=== PATIENT | male | born 1970 | race Caucasian/White ===

== ENCOUNTER 2018-10-09 09:19 | Emergency (ER) | payer SELFPAY ==
[2018-10-09] MEDS ORDERED: ONDANSETRON 4 MG/2 ML VIAL ONE (09:49)
[2018-10-09] MEDS ORDERED: MIDAZOLAM HCL 2 MG/2 ML INJ ONE (09:49)
[2018-10-09] MEDS ORDERED: ETOMIDATE 20 MG/10 ML VIAL IV ONE (09:49)
[2018-10-09] MEDS ORDERED: NA CHLORIDE 0.9% 500 ML ONE (10:14)
[2018-10-09] MEDS ORDERED: KETOROLAC 30 MG/ML INJ ONE (10:14)
--- NOTE | 2018-10-09 10:16 | ER ---
Nurse's Notes [facility] Name: Corbin Diez Age: 48 yrs Sex: Male : 1970 Arrival Date: 10/09/2018 Time: 09:19 Bed 14 Private MD: Diagnosis: Recurrent dislocation, right shoulder-reduced Presentation: 10/09 09:31 Presenting complaint: Patient states: SHOULDER IS OUT AGAIN. Transition of care: ls4 patient was not received from another setting of care. Onset of symptoms was October 09, 2018. Risk Assessment: Do you want to hurt yourself or someone else? Patient reports no desire to harm self or others. Initial Sepsis Screen: Does the patient meet any 2 criteria? No. Patient's initial sepsis screen is negative. Does the patient have a suspected source of infection? No. Patient's initial sepsis screen is negative. Care prior to arrival: None. 09:31 Method Of Arrival: Ambulatory ls4 09:31 Acuity: KARLO 4 ls4 Triage Assessment: 09:33 General: Appears unkempt, Behavior is calm, cooperative. Pain: Complains of pain in ls4 anterior aspect of right shoulder and posterior aspect of right shoulder. Musculoskeletal: No deficits noted. Injury Description: CAME OUT OF JOINT WHILE SLEEPING. Historical: - Allergies: 09:32 Iodine; ls4 - PMHx: 09:32 HTN; ls4 - Immunization history:: Adult Immunizations unknown. - Family history:: not pertinent. - Social history:: Smoking status: unknown. - Ebola Screening: : Patient negative for fever greater than or equal to 101.5 degrees Fahrenheit, and additional compatible Ebola Virus Disease symptoms Patient denies exposure to infectious person Patient denies travel to an Ebola-affected area in the 21 days before illness onset No symptoms or risks identified at this time. Screenin:55 Abuse screen: Denies threats or abuse. Denies injuries from another. Nutritional ls4 screening: No deficits noted. Tuberculosis screening: No symptoms or risk factors identified. Fall Risk None identified. Assessment: 09:48 General: Appears uncomfortable. Neuro: No deficits noted. Respiratory: No deficits ls4 noted. GI: No deficits noted. : No deficits noted. Musculoskeletal: Range of motion: limited in right shoulder. 12:00 Reassessment: Patient appears in no apparent distress at this time. Patient and/or ls4 family updated on plan of care and expected duration. Pain level reassessed. Patient is alert, oriented x 3, equal unlabored respirations, skin warm/dry/pink. 12:30 General: Appears in no apparent distress. sleeping, arousable vss. ls4 Vital Signs: 09:55 BP 148 / 90; Pulse 98; Resp 20; Temp 98.6; Pulse Ox 98% on R/A; Pain 10/10; ls4 10:00 BP 145 / 89; Pulse 92; Resp 28; Temp 98.2; Pulse Ox 99% on 2 lpm NC; Pain 0/10; ls4 10:10 BP 145 / 89; Pulse 92; Resp 16; Pulse Ox 99% on R/A; ls4 10:25 BP 124 / 89; Pulse 92; Resp 18; Pulse Ox 99% on R/A; ls4 11:19 BP 132 / 91; Pulse 92; Resp 17; Temp 98.1(O); Pulse Ox 99% on 2 lpm NC; mh5 12:00 BP 138 / 90; Pulse 78; Resp 16; Temp 98(O); Pulse Ox 99% on R/A; Pain 0/10; ls4 ED Course: 09:19 Patient arrived in ED. rg4 09:25 Paul Horner MD is Attending Physician. minerva 09:30 Araceli Sepulveda RN is Primary Nurse. ls4 09:32 Triage completed. ls4 09:33 Arm band placed on left wrist. ls4 09:55 Patient has correct armband on for positive identification. Bed in low position. Call ls4 light in reach. Side rails up X 1. silver solderer on. Pulse ox on. NIBP on. CONSCIOUS SEDATION CONSENT SIGNED AND COMPLETE. 09:55 Assist provider with reduction of right shoulder. ls4 10:15 Zacarias Varela MD is Referral Physician. minerva 10:47 Shoulder Right (2 View) XRAY: post reduction Sent. ls4 11:07 Shoulder immobilizer applied on right shoulder. 5 11:49 see paper chart for consent. procedure assessment and record. ls4 13:01 IV discontinued, intact, bleeding controlled, No redness/swelling at site. Pressure ls4 dressing applied. Administered Medications: 09:55 Drug: NS 0.9% 1000 ml Route: IV; Rate: 1 bolus; Site: left hand; ls4 13:04 Follow up: IV Status: Completed infusion; IV Intake: 1000ml ls4 09:55 Drug: TORadol 30 mg Route: IVP; Site: left hand; ls4 10:25 Follow up: Response: No adverse reaction ls4 09:55 Drug: Zofran 4 mg Route: IVP; Site: left hand; ls4 10:20 Follow up: Response: No adverse reaction ls4 10:04 Drug: Versed 4 mg Route: IVP; Site: left hand; ls4 13:05 Follow up: Response: No adverse reaction ls4 10:05 Drug: Etomidate 10 mg Route: IVP; Site: left hand; ls4 10:35 Follow up: Response: No adverse reaction ls4 10:07 Drug: Etomidate 10 mg Route: IVP; Site: left hand; ls4 10:35 Follow up: Response: No adverse reaction ls4 11:05 Not Given (Duplicate Order): Versed 6 mg IVP once ls4 Intake: 13:04 IV: 1000ml; Total: 1000ml. ls4 Outcome: 10:15 Discharge ordered by . minerva 13:00 Discharged to home ambulatory. ls4 13:00 Condition: good 13:00 Discharge instructions given to patient, family, Instructed on discharge instructions, follow up and referral plans. no drinking with medication, no driving heavy equipment, medication usage, Demonstrated understanding of instructions, follow-up care, medications. 13:05 Patient left the ED. ls4 Signatures: Paul Horner MD MD cha Garcia, Rubi rg4 Sadie Dejesus 5 Araceli Sepulveda RN RN ls4 Corrections: (The following items were deleted from the chart) 11:38 10:07 Versed 4 mg IVP in left hand ls4 ls4
--- NOTE | 2018-10-09 10:16 | EDPHYS ---
Physician Documentation [facility] Name: Corbin Diez Age: 48 yrs Sex: Male : 1970 Arrival Date: 10/09/2018 Time: 09:19 Bed 14 Private MD: ED Physician Paul Horner HPI: 10/09 09:39 This 48 yrs old Male presents to ER via Ambulatory with complaints of minerva Shoulder Injury. 09:39 The patient or guardian complains of decreased range of motion, deformity, pain. right minerva shoulder. Context: The problem was sustained at home. Onset: The symptoms/episode began/occurred just prior to arrival, this morning. Modifying factors: the symptoms are alleviated by remaining still, shoulder immobilizer, The symptoms are aggravated by movement. Associated signs and symptoms: The patient has no apparent associated signs or symptoms. Severity of symptoms: At their worst the symptoms were moderate, in the emergency department the symptoms are actually worse. Treatment prior to arrival includes: no previous treatment. The patient has experienced similar episodes in the past, multiple times. Historical: - Allergies: 09:32 Iodine; ls4 - PMHx: 09:32 HTN; ls4 - Immunization history:: Adult Immunizations unknown. - Family history:: not pertinent. - Social history:: Smoking status: unknown. - Ebola Screening: : Patient negative for fever greater than or equal to 101.5 degrees Fahrenheit, and additional compatible Ebola Virus Disease symptoms Patient denies exposure to infectious person Patient denies travel to an Ebola-affected area in the 21 days before illness onset No symptoms or risks identified at this time. ROS: 09:39 Constitutional: Negative for fever, chills, and weight loss, Eyes: Negative for injury, minerva pain, redness, and discharge, ENT: Negative for injury, pain, and discharge, Neck: Negative for injury, pain, and swelling, Cardiovascular: Negative for chest pain, palpitations, and edema, Respiratory: Negative for shortness of breath, cough, wheezing, and pleuritic chest pain, Abdomen/GI: Negative for abdominal pain, nausea, vomiting, diarrhea, and constipation, Back: Negative for injury and pain, : Negative for injury, bleeding, discharge, and swelling, Skin: Negative for injury, rash, and discoloration, Neuro: Negative for headache, weakness, numbness, tingling, and seizure, Psych: Negative for depression, anxiety, suicide ideation, homicidal ideation, and hallucinations, Allergy/Immunology: Negative for hives, rash, and allergies, Endocrine: Negative for neck swelling, polydipsia, polyuria, polyphagia, and marked weight changes, Hematologic/Lymphatic: Negative for swollen nodes, abnormal bleeding, and unusual bruising. 09:39 MS/extremity: Positive for decreased range of motion, deformity, pain, tenderness, of the right shoulder. Exam: 09:39 Constitutional: This is a well developed, well nourished patient who is awake, alert, minerva and in no acute distress. Head/Face: Normocephalic, atraumatic. Eyes: Pupils equal round and reactive to light, extra-ocular motions intact. Lids and lashes normal. Conjunctiva and sclera are non-icteric and not injected. Cornea within normal limits. Periorbital areas with no swelling, redness, or edema. ENT: Nares patent. No nasal discharge, no septal abnormalities noted. Tympanic membranes are normal and external auditory canals are clear. Oropharynx with no redness, swelling, or masses, exudates, or evidence of obstruction, uvula midline. Mucous membranes moist. Neck: Trachea midline, no thyromegaly or masses palpated, and no cervical lymphadenopathy. Supple, full range of motion without nuchal rigidity, or vertebral point tenderness. No Meningismus. Chest/axilla: Normal chest wall appearance and motion. Nontender with no deformity. No lesions are appreciated. Cardiovascular: Regular rate and rhythm with a normal S1 and S2. No gallops, murmurs, or rubs. Normal PMI, no JVD. No pulse deficits. Respiratory: Lungs have equal breath sounds bilaterally, clear to auscultation and percussion. No rales, rhonchi or wheezes noted. No increased work of breathing, no retractions or nasal flaring. Abdomen/GI: Soft, non-tender, with normal bowel sounds. No distension or tympany. No guarding or rebound. No evidence of tenderness throughout. Back: No spinal tenderness. No costovertebral tenderness. Full range of motion. Male : Normal genitalia with no discharge or lesions. Skin: Warm, dry with normal turgor. Normal color with no rashes, no lesions, and no evidence of cellulitis. Neuro: Awake and alert, GCS 15, oriented to person, place, time, and situation. Cranial nerves II-XII grossly intact. Motor strength 5/5 in all extremities. Sensory grossly intact. Cerebellar exam normal. Normal gait. Psych: Awake, alert, with orientation to person, place and time. Behavior, mood, and affect are within normal limits. 09:39 Musculoskeletal/extremity: ROM: limited active range of motion due to pain, limited passive range of motion due to pain, Circulation is intact in all extremities. Sensation intact. Compartment Syndrome exam of affected extremity: is normal. DVT Exam: no swelling, negative Homans' sign noted on exam, no appreciated bluish discoloration, no erythema, no increased warmth, pain, tenderness. Vital Signs: 09:55 BP 148 / 90; Pulse 98; Resp 20; Temp 98.6; Pulse Ox 98% on R/A; Pain 10/10; ls4 10:00 BP 145 / 89; Pulse 92; Resp 28; Temp 98.2; Pulse Ox 99% on 2 lpm NC; Pain 0/10; ls4 10:10 BP 145 / 89; Pulse 92; Resp 16; Pulse Ox 99% on R/A; ls4 10:25 BP 124 / 89; Pulse 92; Resp 18; Pulse Ox 99% on R/A; ls4 11:19 BP 132 / 91; Pulse 92; Resp 17; Temp 98.1(O); Pulse Ox 99% on 2 lpm NC; mh5 12:00 BP 138 / 90; Pulse 78; Resp 16; Temp 98(O); Pulse Ox 99% on R/A; Pain 0/10; ls4 Procedures: 09:44 Reduction: of the right shoulder, using traction, Immobilized with shoulder minerva immobilizer. Patient tolerated well. Post reduction film - reveals normal alignment. MDM: 09:25 Patient medically screened. [facility] 09:39 Data reviewed: vital signs, nurses notes, radiologic studies. [facility] 10/09 09:39 Order name: Shoulder Right (2 View) XRAY [facility] 10/09 09:42 Order name: Shoulder Right (2 View) XRAY: post reduction [facility] 10/09 11:42 Order name: RAD [facility] 10/09 11:44 Order name: RAD [facility] 10/09 09:39 Order name: Shoulder Immobilizer; Complete Time: 10:47 [facility] 10/09 09:42 Order name: Ice pack; Complete Time: 11:08 minerva Administered Medications: 09:55 Drug: NS 0.9% 1000 ml Route: IV; Rate: 1 bolus; Site: left hand; ls4 13:04 Follow up: IV Status: Completed infusion; IV Intake: 1000ml ls4 09:55 Drug: TORadol 30 mg Route: IVP; Site: left hand; ls4 10:25 Follow up: Response: No adverse reaction ls4 09:55 Drug: Zofran 4 mg Route: IVP; Site: left hand; ls4 10:20 Follow up: Response: No adverse reaction ls4 10:04 Drug: Versed 4 mg Route: IVP; Site: left hand; ls4 13:05 Follow up: Response: No adverse reaction ls4 10:05 Drug: Etomidate 10 mg Route: IVP; Site: left hand; ls4 10:35 Follow up: Response: No adverse reaction ls4 10:07 Drug: Etomidate 10 mg Route: IVP; Site: left hand; ls4 10:35 Follow up: Response: No adverse reaction ls4 11:05 Not Given (Duplicate Order): Versed 6 mg IVP once ls4 Disposition: 10/09/18 10:15 Discharged to Home. Impression: Recurrent dislocation, right shoulder - reduced. - Condition is Stable. - Discharge Instructions: Shoulder Dislocation, Shoulder Dislocation, [id number]. - Prescriptions for Ibuprofen 600 mg Oral Tablet - take 1 tablet by ORAL route every 8 hours As needed take with food; 21 tablet. Tylenol- Codeine #3 300-30 mg Oral Tablet - take 2 tablet by ORAL route every 6 hours As needed; 30 tablet. - Medication Reconciliation Form, Thank You Letter, Antibiotic Education, Prescription Opioid Use form. - Follow up: Private Physician; When: 2 - 3 days; Reason: Recheck today's complaints, Continuance of care, Re-evaluation by your physician. Follow up: Zacarias Varela; When: 2 - 3 days; Reason: Recheck today's complaints, Continuance of care, Re-evaluation by your physician. - Problem is new. - Symptoms have improved. Signatures: Dispatcher [employer] Paul Dallas MD MD cha Stewart, Lisa RN RN ls4 Corrections: (The following items were deleted from the chart) 11:35 10:15 10/09/2018 10:15 Discharged to Home. Impression: Recurrent dislocation, right ls4 shoulder - reduced. Condition is Stable. Discharge Instructions: Shoulder Dislocation, Shoulder Dislocation, [id number]. Prescriptions for Ibuprofen 600 mg Oral Tablet - take 1 tablet by ORAL route every 8 hours As needed take with food; 21 tablet, Tylenol-Codeine #3 300-30 mg Oral Tablet - take 2 tablet by ORAL route every 6 hours As needed; 30 tablet. and Forms are Medication Reconciliation Form, Thank You Letter, Antibiotic Education, Prescription Opioid Use. Follow up: Private Physician; When: 2 - 3 days; Reason: Recheck today's complaints, Continuance of care, Re-evaluation by your physician. Follow up: Zacarias Varela; When: 2 - 3 days; Reason: Recheck today's complaints, Continuance of care, Re-evaluation by your physician. Problem is new. Symptoms have improved. minerva 13:05 11:35 10/09/2018 10:15 Discharged to Home. Impression: Recurrent dislocation, right ls4 shoulder - reduced. Condition is Stable. Discharge Instructions: Shoulder Dislocation, Shoulder Dislocation, [id number]. Prescriptions for Ibuprofen 600 mg Oral Tablet - take 1 tablet by ORAL route every 8 hours As needed take with food; 21 tablet, Tylenol-Codeine #3 300-30 mg Oral Tablet - take 2 tablet by ORAL route every 6 hours As needed; 30 tablet. and Forms are Medication Reconciliation Form, Thank You Letter, Antibiotic Education, Prescription Opioid Use. Follow up: Private Physician; When: 2 - 3 days; Reason: Recheck today's complaints, Continuance of care, Re-evaluation by your physician. Follow up: Zacarias Varela; When: 2 - 3 days; Reason: Recheck today's complaints, Continuance of care, Re-evaluation by your physician. Problem is new. Symptoms have improved. ls4
--- NOTE | 2018-10-09 11:41 | RAD REPORT ---
EXAM DESCRIPTION: RAD - Shoulder 1 View - 10/09/2018 10:25 am CLINICAL HISTORY: Right shoulder pain FINDINGS: Anterior dislocation involves the right humeral head. No fracture seen
--- NOTE | 2018-10-09 11:43 | RAD REPORT ---
EXAM DESCRIPTION: RAD - Shoulder 1 View - 10/09/2018 10:37 am CLINICAL HISTORY: Right shoulder dislocation FINDINGS: The previously described dislocation appears reduced.
== END 2018-10-09 13:05 | disposition home or self-care (01) ==
LOC: ER 09:19
PROC: 0RSJXZZ Reposition Right Shoulder Joint, External Approach (ICD-10-PCS; principal; 2018-10-09)
DX: S43.004A Unspecified dislocation of right shoulder joint, initial encounter (principal); X58.XXXA Exposure to other specified factors, initial encounter; Z91.09 Other allergy status, other than to drugs and biological substances
CPT/HCPCS: 73020; J2250; J2405

== ENCOUNTER 2019-01-01 07:46 | Emergency (ER) | payer SELFPAY ==
[2019-01-01 08:21] LABS: Absolute Lymphocytes (CBC) 2.4 K/uL (0.7-4.9); Absolute Monocytes 0.4 K/uL (0.1-1.3); Absolute Neutrophil 5.1 K/uL (1.8-8.0); Basophils % 1.1 % (0-1.3); Eosinophils % 4.3 % (0-4.4); Hematocrit 41.5 % (39.6-49.0); Lymphocytes % 28.9 % (15.3-44.8); MPV 8.3 fL (7.6-11.3); Monocytes % 4.9 % (3.3-12.3); RBC Red Blood Cell Count 4.53 M/uL (4.33-5.43)
[2019-01-01 08:43] LABS: ALT/SGPT 27 U/L (12-78); AST/SGOT 36 U/L (15-37); Albumin 3.7 g/dL (3.4-5.0); Alkaline Phosphatase 65 U/L (45-117); BUN Blood Urea Nitrogen 6 mg/dL (7-18); Bicarbonate 20 mmol/L (21-32); Bilirubin Direct < 0.1 mg/dL (0-0.2); Bilirubin Total 0.6 mg/dL (0.2-1.0); Glucose Level 137 mg/dL (74-106); Lipase 550 U/L (73-393); Potassium 4.1 mmol/L (3.5-5.1); Protein, Total 6.7 g/dL (6.4-8.2); Sodium Level 141 mmol/L (136-145)
--- NOTE | 2019-01-01 08:55 | RAD REPORT ---
EXAM DESCRIPTION: CT - Head C Spine Mpr Wo Con - 01/01/2019 8:20 am CLINICAL HISTORY: seizure Head and neck injury status post fall. Head and neck pain COMPARISON: None. TECHNIQUE: Computed axial tomography of the head and cervical spine was obtained. Sagittal and coronal reconstruction was performed. All CT scans are performed using dose optimization technique as appropriate and may include automated exposure control or mA/KV adjustment according to patient size. FINDINGS: Right scalp laceration. An intracranial bleed is not seen. The ventricles are normal in caliber. An extra-axial fluid collect ion is not noted.Fluid is present within the maxillary, ethmoid and sphenoid sinuses A cervical fracture is not visualized. No dislocation is noted. IMPRESSION: No acute intracranial abnormality is seen. Fluid within the sinuses may indicate sinusitis A cervical fracture is not visualized. If the patient continues to have symptoms to suggest intracra nial /spinal cord pathology then MRI would be recommended
[2019-01-01] MEDS ORDERED: NA CHLORIDE 0.9% 1,000 ML ONE (09:15)
[2019-01-01] MEDS ORDERED: TETANUS & DIPHTHERIA TOX,ADULT 0.5 ML VIAL ONE (09:15)
[2019-01-01] MEDS ORDERED: NA CHLORIDE 0.9% 100 ML IV ONE (09:16)
[2019-01-01] MEDS ORDERED: AMPICILLIN/SULBACT 1.5GM VIAL ONE (09:16)
[2019-01-01 10:46] LABS: Urine Blood NEGATIVE (NEG); Urine Glucose NEGATIVE (NEG); Urine Protein 1+ (NEG); Urine pH 6.5 (5.0-7.0)
[2019-01-01 10:50] LABS: Barbiturates NEGATIVE (NEGATIVE); Benzodiazepines NEGATIVE (NEGATIVE); Cocaine NEGATIVE (NEGATIVE); METHAMPHETAM POSITIVE (NEGATIVE); Methadone NEGATIVE (NEGATIVE); Opiates NEGATIVE (NEGATIVE); Phencyclidine NEGATIVE (NEGATIVE); THC Cannibis POSITIVE (NEGATIVE)
[2019-01-01] MEDS ORDERED: KETOROLAC 30 MG/ML INJ ONE (13:07)
[2019-01-01] MEDS ORDERED: LIDOCAINE 1% W/EPI 1:100,000 MDV 50 ML VIAL ONE (15:10)
--- NOTE | 2019-01-01 15:28 | EDPHYS ---
Physician Documentation [facility] Name: Corbin Diez Age: 48 yrs Sex: Male : 1970 Arrival Date: 01/01/2019 Time: 07:52 Bed 6 Private MD: ED Physician Stanley Hernandez HPI: 01/01 08:24 This 48 yrs old Male presents to ER via Wheelchair with complaints of Seizure.snw 08:24 The patient presents after having a single isolated seizure, that lasted 6 second(s). snw Character of seizure(s): Loss of consciousness: the patient did not lose consciousness, Motor activity: blank stare, Incontinence: none, Apnea: the patient did not experience apnea, Circulation: the patient did not experience evidence of pulse disturbance, Eye movements: are unknown. Seizure onset: just prior to arrival. Context: the seizure(s) was witnessed, by a significant other, occurred at a restaurant, occurred while the patient was sitting, Contributing factors: increased stress. Seizure Hx: the patient has no previous seizure history. Associated injury: Other: laceration. Current symptoms: Currently, the patient is not experiencing any symptoms. The patient has not experienced similar symptoms in the past. The patient has not recently seen a physician. Historical: - Allergies: 07:57 IV contrast; ss - Home Meds: 07:57 metoprolol tartrate 50 mg Oral tab 1 tab 2 times per day [Active]; ss - PMHx: 07:57 HTN; ss - PSHx: 07:57 Cholecystectomy; exploratory abd sx; ss - Immunization history:: Adult Immunizations up to date. - Social history:: Smoking status: Patient uses tobacco products, smokes one-half pack cigarettes per day, Patient uses alcohol, only on a social basis. Patient/guardian denies using street drugs. - Ebola Screening: : Patient denies exposure to infectious person Patient denies travel to an Ebola-affected area in the 21 days before illness onset. ROS: 08:22 Constitutional: Negative for fever, chills, and weight loss, Eyes: Negative for injury, snw pain, redness, and discharge, ENT: Negative for injury, pain, and discharge, Neck: Negative for injury, pain, and swelling, Cardiovascular: Negative for chest pain, palpitations, and edema, Respiratory: Negative for shortness of breath, cough, wheezing, and pleuritic chest pain, Abdomen/GI: Negative for abdominal pain, nausea, vomiting, diarrhea, and constipation, Back: Negative for injury and pain, : Negative for injury, bleeding, discharge, and swelling, MS/Extremity: Negative for injury and deformity, Skin: Negative for injury, rash, and discoloration. 08:22 Neuro: Positive for seizure activity, laceration of right parietal area and right ear. Exam: 08:22 Constitutional: This is a well developed, well nourished patient who is awake, alert, snw and in no acute distress. Eyes: Pupils equal round and reactive to light, extra-ocular motions intact. Lids and lashes normal. Conjunctiva and sclera are non-icteric and not injected. Cornea within normal limits. Periorbital areas with no swelling, redness, or edema. Neck: Trachea midline, no thyromegaly or masses palpated, and no cervical lymphadenopathy. Supple, full range of motion without nuchal rigidity, or vertebral point tenderness. No Meningismus. Chest/axilla: Normal chest wall appearance and motion. Nontender with no deformity. No lesions are appreciated. Cardiovascular: Regular rate and rhythm with a normal S1 and S2. No gallops, murmurs, or rubs. Normal PMI, no JVD. No pulse deficits. Respiratory: Lungs have equal breath sounds bilaterally, clear to auscultation and percussion. No rales, rhonchi or wheezes noted. No increased work of breathing, no retractions or nasal flaring. Abdomen/GI: Soft, non-tender, with normal bowel sounds. No distension or tympany. No guarding or rebound. No evidence of tenderness throughout. Back: No spinal tenderness. No costovertebral tenderness. Full range of motion. Skin: Warm, dry with normal turgor. Normal color with no rashes, no lesions, and no evidence of cellulitis. MS/ Extremity: Pulses equal, no cyanosis. Neurovascular intact. Full, normal range of motion. Neuro: Awake and alert, GCS 15, oriented to person, place, time, and situation. Cranial nerves II-XII grossly intact. Motor strength 5/5 in all extremities. Sensory grossly intact. Cerebellar exam normal. Normal gait. 08:22 Head/face: Noted is a laceration(s), of the pt with one linear 2cm laceration to right parietal area, another complex laceration over the right ear, helix degloved with 2cm of intact appearing cartilage visible from gaping laceration. Vital Signs: 07:57 Pulse 96; Resp 16; Temp 98.2(TE); Pulse Ox 97% on R/A; Weight 68.04 kg; Height 5 ft. 7 ss in. (170.18 cm); Pain 8/10; 08:00 BP 112 / 72; aa5 08:50 BP 98 / 55; Pulse 80; Resp 16 S; Pulse Ox 98% on R/A; aa5 09:15 BP 109 / 66; Pulse 79; Resp 16 S; Pulse Ox 97% on R/A; aa5 09:45 BP 113 / 77; Pulse 76; Resp 18 S; Pulse Ox 100% on R/A; aa5 10:00 BP 120 / 76; Pulse 78; Resp 18 S; Pulse Ox 100% on R/A; aa5 10:30 BP 102 / 56; Pulse 76; Resp 18 S; Pulse Ox 98% on R/A; aa5 11:30 BP 97 / 60; Pulse 57; Resp 18 S; Pulse Ox 99% on R/A; aa5 12:00 BP 107 / 69; Pulse 65; Resp 16 S; Pulse Ox 98% on R/A; aa5 13:07 BP 107 / 86; Pulse 70; Resp 14; Pulse Ox 100% ; bp 15:35 BP 138 / 81; Pulse 51; Resp 18; Temp 98.1(O); Pulse Ox 99% on R/A; kj1 07:57 Body Mass Index 23.49 (68.04 kg, 170.18 cm) ss Rebuck Coma Score: 08:00 Eye Response: spontaneous(4). Verbal Response: oriented(5). Motor Response: obeys aa5 commands(6). Total: 15. MDM: 07:57 Patient medically screened. snw 09:50 Physician consultation: Sarah Patterson MD was called at 09:50, was contacted at snw 09:50, regarding consult, Kindly agrees to come and eval and tx complex ear laceration. 10:11 Data reviewed: vital signs, nurses notes. Data interpreted: Pulse oximetry: on room air snw is 98 %. Interpretation: normal. Counseling: I had a detailed discussion with the patient and/or guardian regarding: the historical points, exam findings, and any diagnostic results supporting the discharge/admit diagnosis, lab results, radiology results. 13:48 Awaiting: ENT. snw 15:19 Physician consultation: in the emergency department to see patient at 15:00. snw 01/01 07:59 Order name: UDS; Complete Time: 11:20 snw 01/01 07:59 Order name: Basic Metabolic Panel; Complete Time: 08:56 snw 01/01 07:59 Order name: CBC with Diff; Complete Time: 08:30 snw 01/01 07:59 Order name: Hepatic Function; Complete Time: 08:56 snw 01/01 07:59 Order name: Lipase; Complete Time: 08:56 snw 01/01 07:59 Order name: CT Head C Spine; Complete Time: 08:56 snw 01/01 07:59 Order name: IV Saline Lock; Complete Time: 08:00 snw 01/01 10:38 Order name: Urine Dipstick--Ancillary (enter results); Complete Time: 11:20 01/01 07:59 Order name: Labs collected and sent; Complete Time: 08:01 snw 01/01 11:20 Order name: NPO; Complete Time: 11:23 snw Administered Medications: 09:12 Drug: NS 0.9% 1000 ml Route: IV; Rate: 1 bolus; Site: right forearm; bp 10:15 Follow up: IV Status: Completed infusion aa5 09:13 Drug: Unasyn 3 grams Route: IVPB; Infused Over: 30 mins; Site: right forearm; bp 09:45 Follow up: Response: No adverse reaction; IV Status: Completed infusion aa5 09:13 Drug: Tetanus-Diphtheria Toxoid Adult 0.5 ml {Retail Department Reset: [employer]. Exp: bp 11/04/2020. Lot #: [id number]. } Route: IM; Site: right deltoid; 09:45 Follow up: Response: No adverse reaction aa5 12:53 Follow up: Response: No adverse reaction bp 12:56 Drug: Ketorolac 15 mg Route: IVP; Site: right forearm; bp 13:10 Follow up: Response: No adverse reaction aa5 15:15 Drug: Lidocaine-Epinephrine -1%: (1:100,000) 1 vials {Note: administered by Dr. Patterson aa5 during laceration repair .} Volume: 20 ml; Route: Infiltration; Disposition: 01/01/19 15:27 Discharged to Home. Impression: Syncope and collapse, Other stimulant use, unspecified, Unspecified injury of head, Laceration without foreign body of right ear, Contusion of scalp, Laceration without foreign body of scalp. - Condition is Stable. - Discharge Instructions: Head Injury, Adult, Laceration Care, Adult, Facial Laceration, Seizure, Adult, Syncope, Stimulant Use Disorder-Methamphetamines. - Prescriptions for Keflex 500 mg Oral Capsule - take 1 capsule by ORAL route every 8 hours for 10 days; 30 capsule. Mobic 7.5 mg Oral Tablet - take 1 tablet by ORAL route once daily take with food; 20 tablet. - Medication Reconciliation Form, Thank You Letter, Antibiotic Education, Prescription Opioid Use form. - Follow up: Emergency Department; When: As needed; Reason: Worsening of condition. Follow up: Private Physician; When: As needed; Reason: Re-evaluation by your physician. Follow up: Sarah Patterson MD; When: 5 - 6 days; Reason: Recheck today's complaints, Continuance of care, Staple/Suture removal. - Problem is new. - Symptoms have improved. Addendum: 01/03/2019 08:03 Co-signature as Attending Physician, Stanley Hernandez MD Available for consultation at p s1 all times. . Signatures: Dispatcher [employer] [facility] Joi Jane, REGIONAL CLINICAL RESEARCH ASSOCIATE-C REGIONAL CLINICAL RESEARCH ASSOCIATE-Csnw Irasema Hebert RN RN aa5 Yoselin Trevino RN RN ss Peltier, Brian, RN RN bp Singer, Phillip, MD MD ps1 Corrections: (The following items were deleted from the chart) 01/01 11:23 08:00 Creatinine for Radiology+C.LAB.BRZ ordered. [facility] EDWI 15:44 15:27 01/01/2019 15:27 Discharged to Home. Impression: Syncope and collapse; Other aa5 stimulant use, unspecified; Unspecified injury of head; Laceration without foreign body of right ear; Contusion of scalp; Laceration without foreign body of scalp. Condition is Stable. Forms are Medication Reconciliation Form, Thank You Letter, Antibiotic Education, Prescription Opioid Use. Follow up: Emergency Department; When: As needed; Reason: Worsening of condition. Follow up: Private Physician; When: As needed; Reason: Re-evaluation by your physician. Follow up: Sarah Patterson; When: 5 - 6 days; Reason: Recheck today's complaints, Continuance of care, Staple/Suture removal. Problem is new. Symptoms have improved. snw
--- NOTE | 2019-01-01 15:28 | ER ---
Nurse's Notes [facility] Name: Corbin Diez Age: 48 yrs Sex: Male : 1970 Arrival Date: 01/01/2019 Time: 07:52 Bed 6 Private MD: Diagnosis: Syncope and collapse;Other stimulant use, unspecified;Unspecified injury of head;Laceration without foreign body of right ear;Contusion of scalp;Laceration without foreign body of scalp Presentation: 01/01 07:55 Presenting complaint: spouse reports that they were sitting down eating just prior to ss arrival, when patient suddenly had a seizure lasting "a few seconds." Laceration to top of R ear and R parietal area noted. Pt is A\\T\\O x 3 on arrival. Transition of care: patient was not received from another setting of care. Onset of symptoms was January 01, 2019. Risk Assessment: Do you want to hurt yourself or someone else? Patient reports no desire to harm self or others. Initial Sepsis Screen: Does the patient meet any 2 criteria? No. Patient's initial sepsis screen is negative. Does the patient have a suspected source of infection? No. Patient's initial sepsis screen is negative. Care prior to arrival: None. 07:55 Method Of Arrival: Wheelchair 07:55 Acuity: KARLO 2 ss Historical: - Allergies: 07:57 IV contrast; ss - Home Meds: 07:57 metoprolol tartrate 50 mg Oral tab 1 tab 2 times per day [Active]; ss - PMHx: 07:57 HTN; ss - PSHx: 07:57 Cholecystectomy; exploratory abd sx; ss - Immunization history:: Adult Immunizations up to date. - Social history:: Smoking status: Patient uses tobacco products, smokes one-half pack cigarettes per day, Patient uses alcohol, only on a social basis. Patient/guardian denies using street drugs. - Ebola Screening: : Patient denies exposure to infectious person Patient denies travel to an Ebola-affected area in the 21 days before illness onset. Screenin:10 Nutritional screening: No deficits noted. Tuberculosis screening: No symptoms or risk aa5 factors identified. 08:10 Abuse screen: Denies threats or abuse. aa5 08:14 Fall Risk Fall in past 12 months (25 points). Secondary diagnosis (15 points) Seizure aa5 today . IV access (20 points). Total Pablo Fall Scale indicates High Risk Score (45 or more points). Fall prevention measures have been instituted. Side Rails Up X 2. Assessment: 08:00 General: Appears comfortable, Behavior is calm, cooperative. Pain: Complains of pain in aa5 right eat and right parietal area Pain does not radiate. Pain currently is 8 out of 10 on a pain scale. Neuro: Level of Consciousness is awake, alert, obeys commands, Oriented to person, place, time, situation, Appropriate for age Pastrycook'S Assistant are equal bilaterally Moves all extremities. Speech is normal, Facial symmetry appears normal, Pupils are PERRLA. Cardiovascular: Heart tones S1 S2 present Rhythm is regular. Respiratory: Airway is patent Respiratory effort is even, unlabored, Respiratory pattern is regular, symmetrical, Breath sounds are clear bilaterally. GI: Abdomen is non-distended, Bowel sounds present X 4 quads. Abd is soft and non tender X 4 quads. : No signs and/or symptoms were reported regarding the genitourinary system. Derm: Skin is pink, warm \\T\\ dry. Avulsion noted to right ear approximately 1.5 in long with cartilage exposed. Laceration noted to right parietal area, approximately 1 in long. Wounds cleaned with saline, gauze, and Kerlix applied. Musculoskeletal: Range of motion: intact in all extremities. 09:00 Reassessment: Pt resting in bed with eyes closed respirations even and unlabored, skin aa5 is pink/warm/dry. Pt easy to awaken to verbal stimuli. Pt rates pain 6/10 on a pain scale. . 09:40 Reassessment: Pt resting in bed with eyes closed, respirations even and unlabored, skin aa5 is pink/warm/dry . 10:30 Reassessment: Pt voided 400cc of urine, UDS sent to lab. Pt resting in bed with eyes aa5 closed, respirations even and unlabored. Awaiting for Dr. Patterson (ENT) to come and evaluate pt, pt notified of wait time. . 11:49 Reassessment: awaiting consultation from Dr. Patterson. ss 12:00 Reassessment: Patient is alert, oriented x 3, equal unlabored respirations, skin aa5 warm/dry/pink. Pt voided x 1. Pt reminded of NPO status due to possibility of need to go to OR. Awaiting Dr. Patterson. . 12:00 Reassessment: Called Dr. Patterson to obtain ETA, no answer. Left VM. ss 13:00 Reassessment: Patient is alert, oriented x 3, equal unlabored respirations, skin aa5 warm/dry/pink. 13:00 Pain: Pain currently is 3 out of 10 on a pain scale. aa5 13:06 Reassessment: ENT C/S STILL PENDING. bp 13:44 Reassessment: Called Luz Elena supervisor housecleaner to attempt to get ahold of Dr. Patterson. ss 14:30 Reassessment: Patient is alert, oriented x 3, equal unlabored respirations, skin aa5 warm/dry/pink. Patient states feeling better. 15:10 Reassessment: Dr. Patterson at bedside . aa5 15:40 Reassessment: Patient is alert, oriented x 3, equal unlabored respirations, skin aa5 warm/dry/pink. Vital Signs: 07:57 Pulse 96; Resp 16; Temp 98.2(TE); Pulse Ox 97% on R/A; Weight 68.04 kg; Height 5 ft. 7 ss in. (170.18 cm); Pain 8/10; 08:00 BP 112 / 72; aa5 08:50 BP 98 / 55; Pulse 80; Resp 16 S; Pulse Ox 98% on R/A; aa5 09:15 BP 109 / 66; Pulse 79; Resp 16 S; Pulse Ox 97% on R/A; aa5 09:45 BP 113 / 77; Pulse 76; Resp 18 S; Pulse Ox 100% on R/A; aa5 10:00 BP 120 / 76; Pulse 78; Resp 18 S; Pulse Ox 100% on R/A; aa5 10:30 BP 102 / 56; Pulse 76; Resp 18 S; Pulse Ox 98% on R/A; aa5 11:30 BP 97 / 60; Pulse 57; Resp 18 S; Pulse Ox 99% on R/A; aa5 12:00 BP 107 / 69; Pulse 65; Resp 16 S; Pulse Ox 98% on R/A; aa5 13:07 BP 107 / 86; Pulse 70; Resp 14; Pulse Ox 100% ; bp 15:35 BP 138 / 81; Pulse 51; Resp 18; Temp 98.1(O); Pulse Ox 99% on R/A; kj1 07:57 Body Mass Index 23.49 (68.04 kg, 170.18 cm) ss Nadeen Coma Score: 08:00 Eye Response: spontaneous(4). Verbal Response: oriented(5). Motor Response: obeys aa5 commands(6). Total: 15. ED Course: 07:52 Patient arrived in ED. aa5 07:52 Irasema Hebert, LEV is Primary Nurse. aa5 07:56 Triage completed. ss 07:57 Joi Jane FNP-C is PHCP. snw 07:57 Stanley Hernandez MD is Attending Physician. snw 07:57 Arm band placed on right wrist. ss 08:00 Seizure precautions initiated. aa5 08:14 Inserted saline lock: 20 gauge in right forearm, using aseptic technique. kj1 08:14 Initial lab(s) drawn, by me, sent to lab. kj1 08:14 EKG done, by ED staff. kj1 08:[address] mw3 08:17 CT completed. Patient tolerated procedure well. Patient moved back from CT. mw3 08:20 CT Head C Spine In Process Unspecified. EDMS 12:11 No provider procedures requiring assistance completed. aa5 15:24 Sarah Patterson MD is Referral Physician. snw 15:26 Assist provider with laceration repair on right ear using sutures. Set up tray. aa5 Performed by Sarah Patterson MD Dressed with Neosporin, 8 horace applied to laceration to right parietal area by Dr. Patterson, dressed with Neosporin. Patient tolerated well. 15:40 IV discontinued, intact, bleeding controlled, No redness/swelling at site. Pressure aa5 dressing applied. Administered Medications: 09:12 Drug: NS 0.9% 1000 ml Route: IV; Rate: 1 bolus; Site: right forearm; bp 10:15 Follow up: IV Status: Completed infusion aa5 09:13 Drug: Unasyn 3 grams Route: IVPB; Infused Over: 30 mins; Site: right forearm; bp 09:45 Follow up: Response: No adverse reaction; IV Status: Completed infusion aa5 09:13 Drug: Tetanus-Diphtheria Toxoid Adult 0.5 ml {Uniform Room Attendant: [employer]. Exp: bp 11/04/2020. Lot #: [id number]. } Route: IM; Site: right deltoid; 09:45 Follow up: Response: No adverse reaction aa5 12:53 Follow up: Response: No adverse reaction bp 12:56 Drug: Ketorolac 15 mg Route: IVP; Site: right forearm; bp 13:10 Follow up: Response: No adverse reaction aa5 15:15 Drug: Lidocaine-Epinephrine -1%: (1:100,000) 1 vials {Note: administered by Dr. Leonardo hathaway during laceration repair .} Volume: 20 ml; Route: Infiltration; Outcome: 15:27 Discharge ordered by . snw 15:40 Discharged to home ambulatory. aa5 15:40 Condition: stable 15:40 Discharge instructions given to patient, Instructed on discharge instructions, follow up and referral plans. medication usage, Demonstrated understanding of instructions, follow-up care, medications, Prescriptions given X 2. 15:44 Patient left the ED. aa5 Signatures: Dispatcher [employer] [facility] Joi Jane FNP-C BLISS PRESS OPERATOR-Irasema Spangler, RN RN aa5 Yoselin Trevino RN RN Bill Davenport RN RN bp Willis, Michelle mw3 Cindy Elizabeth kj1 Corrections: (The following items were deleted from the chart) 08:16 08:10 Abuse screen: Denies threats or abuse. aa5 aa5 08:16 08:10 Fall Risk Fall in past 12 months (25 points). Secondary diagnosis (15 points) aa5 Seizure today . IV access (20 points). aa5 08:16 08:14 Fall Risk Fall in past 12 months (25 points). Secondary diagnosis (15 points) aa5 Seizure today . IV access (20 points). aa5
--- NOTE | 2019-01-02 17:06 | OP ---
Date of Procedure: 01/01/2019 Surgeon: Sarah Patterson MD Preoperative Diagnoses: Right scalp laceration of 7.5 cm, right ear laceration complex of 5 cm. Postoperative Diagnoses: Right scalp laceration of 7.5 cm, right ear laceration complex of 5 cm. Procedures: Simple repair of scalp laceration and complex repair of ear laceration. Indications For Procedure: The patient was at home and may have had a fall or seizure-like activity sustaining the above noted injuries. He was evaluated in the emergency room and cleared from neurologic and head injury standpoint. Due to the complexity of the ear wound, ENT consultation was requested for repair. The patient was seen and treated in the emergency room setting. Description Of Procedure: After verbal consent from the patient, the right ear and right scalp were injected with 1% lidocaine with epi. A total of 6 mL was used. The patient's ear and scalp were then cleaned with chlorhexidine due to iodine allergy. The wound of the scalp was noted to be deep and completely through the soft tissue scalp tissue with visible bone. After careful consideration, decision was made for closure with horace. A total of 8 horace was applied to the scalp laceration. Attention was then turned to the right ear. The laceration extended along the preauricular crease from the midpoint of the pinna superiorly around the top of the helix and across the root of the helix. The laceration was deep and the upper portion of the cartilage of the helix and antihelix were fractured and pulled away from the scalp. Vicryl sutures were used to re-attach the top portion of the auricular cartilage to the scalp in order to reposition the ear against the head. The skin was closed in a running fashion with 5-0 fast-absorbing gut. At the root of the helix, there was a 2nd small laceration, which was repaired separately with running fast-absorbing gut. After closure of the ear wound, a small amount of auricular hematoma was noted along the edge of the upper portion of the minoo and along the antihelical rim. However, this is relatively small and I do not feel that drainage of this hematoma was indicated. The patient's ear was then cleaned with a damp gauze and triple antibiotic was applied to both the scalp and ear lacerations. Disposition: The patient will be discharged home by the emergency room with a recommendation for Keflex or other similar antibiotic coverage. He will follow up in my clinic in 1 to 2 weeks for removal of horace and evaluation of healing. DARRELL/SHOSHANA Voice ID: [id number] Report ID: [id number] MTDD
--- NOTE | 2019-01-03 05:58 | EKG ---
Test Date: 2019-01-01 Test Time: 08:10:51 Termite Renewal Inspector: SAMSON MEASUREMENT RESULTS: Intervals: Rate: 88 CT: 180 QRSD: 96 QT: 362 QTc: 438 [place]: P: 53 CT: 180 QRS: 45 T: 65 INTERPRETIVE STATEMENTS: Normal sinus rhythm Normal ECG Compared to ECG 03/06/2003 09:53:00 Sinus arrhythmia no longer present Electronically Signed On 01-03-19 05:57:49 CDT by Panchito Vega
== END 2019-01-01 15:44 | disposition home or self-care (01) ==
LOC: ER 07:46
DX: R55 Syncope and collapse (principal); F15.90 Other stimulant use, unspecified, uncomplicated; S00.03XA Contusion of scalp, initial encounter; S01.01XA Laceration without foreign body of scalp, initial encounter; S01.311A Laceration without foreign body of right ear, initial encounter; W19.XXXA Unspecified fall, initial encounter; Y92.511 Restaurant or cafe as the place of occurrence of the external cause; I10 Essential (primary) hypertension; F17.210 Nicotine dependence, cigarettes, uncomplicated; Z23 Encounter for immunization
CPT/HCPCS: 36415; 70450; 72125; 80048; 80076; 80307; 81003; 83690; 85025; 90714; 93005; 96361; 96365; 96375; 99285; J0295; J7030

== ENCOUNTER 2019-08-09 15:02 | Emergency (ER) | payer SELFPAY ==
[2019-08-09] MEDS ORDERED: KETOROLAC 30 MG/ML INJ ONE (16:08)
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
[2019-08-09 17:35] VITALS: BP 117/78; TEMP 97.3; O2SAT 98
--- NOTE | 2019-08-09 18:10 | RAD REPORT ---
EXAM DESCRIPTION: RAD - Shoulder Left 2 View - 08/09/2019 4:26 pm CLINICAL HISTORY: Left shoulder pain following trauma COMPARISON: None. TECHNIQUE: Internal and external rotation views of the left shoulder were obtained. FINDINGS: There is no fracture or dislocation. AC joint is normal in appearance. No acute or suspici ous findings. IMPRESSION: Negative two-view left shoulder examination.
== END 2019-08-09 16:59 | disposition home or self-care (01) ==
LOC: ER 15:02
DX: M25.512 Pain in left shoulder (principal); W20.8XXA Other cause of strike by thrown, projected or falling object, initial encounter; Y93.89 Activity, other specified; Y92.9 Unspecified place or not applicable; F17.210 Nicotine dependence, cigarettes, uncomplicated
CPT/HCPCS: 96372; 99283

== ENCOUNTER 2021-05-19 14:50 | Emergency (ER) | payer SELFPAY ==
[2021-05-19 18:10] LABS: Urine Blood Negative (Negative); Urine Glucose Negative (Negative); Urine Protein Negative (Negative); Urine pH 6.5 (5.0-7.0)
[2021-05-19 18:16] LABS: Protime INR 1.02
[2021-05-19 18:18] LABS: Absolute Lymphocytes (CBC) 2.6 K/uL (0.7-4.9); Basophils % 0.7 % (0-1.3); Hematocrit 45.8 % (39.6-49.0); Lymphocytes % 30.3 % (15.3-44.8); MPV 7.7 fL (7.6-11.3); RBC Red Blood Cell Count 4.95 M/uL (4.33-5.43)
--- NOTE | 2021-05-19 18:24 | RAD REPORT ---
EXAM DESCRIPTION: Taylor Single View05/19/2021 6:17 pm CLINICAL HISTORY: Chest pain COMPARISON: none FINDINGS: The lungs appear clear of acute infiltrate. The heart is normal size IMPRESSION: No acute abnormalities displayed
[2021-05-19 18:26] LABS: ALT/SGPT 53 U/L (12-78); AST/SGOT 24 U/L (15-37); Alkaline Phosphatase 74 U/L (45-117); BUN Blood Urea Nitrogen 14 mg/dL (7-18); Bicarbonate 25 mmol/L (21-32); Bilirubin Direct 0.1 mg/dL (0-0.2); Bilirubin Total 0.6 mg/dL (0.2-1.0); Glucose Level 92 mg/dL (74-106); Magnesium 2.2 mg/dL (1.8-2.4); NT PRO-BNP 31 pg/mL (<125); Potassium 4.1 mmol/L (3.5-5.1); Protein, Total 7.3 g/dL (6.4-8.2); Sodium Level 135 mmol/L (136-145); Troponin (Emerg Dept Use Only) < 0.02 ng/mL (0.0-0.045)
[2021-05-19 18:35] LABS: Barbiturates NEGATIVE (NEGATIVE); Benzodiazepines NEGATIVE (NEGATIVE); Cocaine NEGATIVE (NEGATIVE); METHAMPHETAM POSITIVE (NEGATIVE); Methadone NEGATIVE (NEGATIVE); Opiates NEGATIVE (NEGATIVE); Phencyclidine NEGATIVE (NEGATIVE); THC Cannibis POSITIVE (NEGATIVE)
--- NOTE | 2021-05-19 21:14 | ER ---
Nurse's Notes [facility] Name: Corbin Diez Age: 50 yrs Sex: Male : 1970 Arrival Date: 05/19/2021 Time: 14:54 Bed 25 Private MD: Diagnosis: Chest pain, unspecified;Other stimulant abuse-Methamphetamine;Cannabis abuse Presentation: 05/19 15:02 Method Of Arrival: Ambulatory 15:17 Chief complaint: Patient states: L sided chest pain that began this morning. ss Coronavirus screen: Client denies travel out of the [place] in the last 14 days. Ebola Screen: Patient denies exposure to infectious person. Patient denies travel to an Ebola-affected area in the 21 days before illness onset. Initial Sepsis Screen: Does the patient meet any 2 criteria? No. Patient's initial sepsis screen is negative. Does the patient have a suspected source of infection? No. Patient's initial sepsis screen is negative. Risk Assessment: Do you want to hurt yourself or someone else? Patient reports no desire to harm self or others. Onset of symptoms was May 19, 2021. 15:17 Acuity: KARLO 3 ss Historical: - Allergies: 15:02 IV contrast; ss - PMHx: 15:02 HTN; ss - Immunization history:: Client reports receiving the 2nd dose of the Covid vaccine. - Social history:: Smoking status: Patient reports the use of cigarette tobacco products, smokes one-half pack cigarettes per day. Screenin:52 Abuse screen: Denies threats or abuse. Denies injuries from another. Nutritional ld1 screening: No deficits noted. Tuberculosis screening: No symptoms or risk factors identified. Fall Risk None identified. Assessment: 17:52 General: Appears in no apparent distress. comfortable, Behavior is calm, cooperative, ld1 appropriate for age. Pain: Complains of pain in left clavicle, anterior aspect of left upper chest and left breast Pain does not radiate. Pain currently is 8 out of 10 on a pain scale. Quality of pain is described as throbbing, Pain began 4 hours ago. Is continuous. Neuro: Level of Consciousness is awake, alert, obeys commands, Oriented to person, place, time, situation, Appropriate for age. Cardiovascular: Capillary refill < 3 seconds Patient's skin is warm and dry. Rhythm is sinus bradycardia. Respiratory: Respiratory: Airway is patent Respiratory effort is even, unlabored, Respiratory pattern is regular, symmetrical. GI: GI: Abdomen is flat, non-distended. : No signs and/or symptoms were reported regarding the genitourinary system. EENT: No signs and/or symptoms were reported regarding the EENT system. Derm: No signs and/or symptoms reported regarding the dermatologic system. Musculoskeletal: No signs and/or symptoms reported regarding the musculoskeletal system. 19:30 Reassessment: Patient appears in no apparent distress at this time. No changes from ld1 previously documented assessment. Patient and/or family updated on plan of care and expected duration. Pain level reassessed. 20:47 Reassessment: Patient appears in no apparent distress at this time. Patient is alert, ld1 oriented x 3, equal unlabored respirations, skin warm/dry/pink. Vital Signs: 15:17 BP 145 / 97; Pulse 69; Resp 18; Temp 98.2(TE); Pulse Ox 100% on R/A; Weight 68.04 kg; ss Height 5 ft. 7 in. (170.18 cm); Pain 6/10; 17:52 BP 167 / 112; Pulse 51; Resp 18; Pulse Ox 99% on R/A; ld1 18:47 BP 156 / 89; Pulse 60; Resp 20; Pulse Ox 99% ; Pain 8/10; ch5 20:47 BP 105 / 61; Pulse 59; Resp 18; Pulse Ox 100% on R/A; ld1 15:17 Body Mass Index 23.49 (68.04 kg, 170.18 cm) ED Course: 14:54 Patient arrived in ED. mr 15:02 Arm band placed on right wrist. ss 15:18 Triage completed. ss 17:28 Donavon Vallejo NP is PHCP. pm1 17:28 Hudson Pinto MD is Attending Physician. pm1 17:52 Patient has correct armband on for positive identification. Bed in low position. Call ld1 light in reach. Side rails up X2. gambling monitor on. Pulse ox on. NIBP on. Door closed. Noise minimized. Warm blanket given. 17:52 No provider procedures requiring assistance completed. Inserted saline lock: 20 gauge ld1 in right forearm, using aseptic technique. Blood collected. Patient maintains SpO2 saturation greater than 95% on room air. 18:18 XRAY Chest (1 view) In Process Unspecified. EDMS 18:47 Cesar Saenz, RN is Primary Nurse. ch5 Administered Medications: No medications were administered Outcome: 21:28 AMA ld1 21:28 Condition: stable 21:28 Patient left the ED. ld1 Signatures: Dispatcher [employer] EDAK Bess Hudson mr Yoselin Trevino RN RN ss Donavon Vallejo, WILLIAM TUBE CUTTER OPERATOR pm1 Kay Kern RN RN ld1 Cesar Saenz, RN RN ch5
--- NOTE | 2021-05-19 21:14 | EDPHYS ---
Physician Documentation [facility] Name: Corbin Diez Age: 50 yrs Sex: Male : 1970 Arrival Date: 05/19/2021 Time: 14:54 Bed 25 Private MD: ED Physician Hudson Pinto HPI: 05/19 17:38 This 50 yrs old Male presents to ER via Ambulatory with complaints of Chest pm1 Pain. 17:38 The patient or guardian reports chest pain that is located primarily in the anterior pm1 aspect of left upper chest. Onset: today, at 12:00. The pain does not radiate. Associated signs and symptoms: The patient has no apparent associated signs or symptoms, Pertinent negatives: abdominal pain, cough, nausea, shortness of breath, vomiting. The chest pain is described as aching. Duration: The patient or guardian reports a single episode, that is still ongoing. Modifying factors: The symptoms are alleviated by nothing. the symptoms are aggravated by nothing. Severity of pain: in the emergency department the pain is unchanged. The patient has not experienced similar symptoms in the past. The patient has not recently seen a physician. Historical: - Allergies: 15:02 IV contrast; ss - PMHx: 15:02 HTN; ss - Immunization history:: Client reports receiving the 2nd dose of the Covid vaccine. - Social history:: Smoking status: Patient reports the use of cigarette tobacco products, smokes one-half pack cigarettes per day. ROS: 17:38 Constitutional: Negative for fever, chills, and weight loss. pm1 17:38 Respiratory: Negative for shortness of breath, cough, wheezing, and pleuritic chest pain, Abdomen/GI: Negative for abdominal pain, nausea, vomiting, diarrhea, and constipation, MS/Extremity: Negative for injury and deformity, Skin: Negative for injury, rash, and discoloration, Neuro: Negative for headache, weakness, numbness, tingling, and seizure. 17:38 Cardiovascular: Positive for chest pain, Negative for edema, palpitations. 17:38 All other systems are negative. Exam: 17:38 Constitutional: This is a well developed, well nourished patient who is awake, alert, pm1 and in no acute distress. Head/Face: Normocephalic, atraumatic. 17:38 Skin: Warm, dry with normal turgor. Normal color with no rashes, no lesions, and no evidence of cellulitis. MS/ Extremity: Pulses equal, no cyanosis. Neurovascular intact. Full, normal range of motion. 17:38 Cardiovascular: Exam negative for acute changes, Rate: normal, Rhythm: regular, Pulses: no pulse deficits are appreciated, Heart sounds: normal, normal S1and S2, Edema: is not appreciated. 17:38 Respiratory: Exam negative for acute changes, respiratory distress, shortness of breath, Breath sounds: are clear throughout. 17:38 Neuro: Exam negative for acute changes, Orientation: is normal, Mentation: is normal, Motor: is normal, moves all fours. Vital Signs: 15:17 BP 145 / 97; Pulse 69; Resp 18; Temp 98.2(TE); Pulse Ox 100% on R/A; Weight 68.04 kg; ss Height 5 ft. 7 in. (170.18 cm); Pain 6/10; 17:52 BP 167 / 112; Pulse 51; Resp 18; Pulse Ox 99% on R/A; ld1 18:47 BP 156 / 89; Pulse 60; Resp 20; Pulse Ox 99% ; Pain 8/10; ch5 20:47 BP 105 / 61; Pulse 59; Resp 18; Pulse Ox 100% on R/A; ld1 15:17 Body Mass Index 23.49 (68.04 kg, 170.18 cm) ss MDM: 17:41 Patient medically screened. pm1 21:10 Data reviewed: vital signs. Data interpreted: Pulse oximetry: on room air is 100 %. pm1 Interpretation: normal. 05/19 17:37 Order name: Basic Metabolic Panel; Complete Time: 19:17 pm1 05/19 17:37 Order name: CBC with Diff; Complete Time: 19:17 pm1 05/19 17:37 Order name: LFT's; Complete Time: 19:17 pm05/19 17:37 Order name: Magnesium; Complete Time: 19:17 pm05/19 17:37 Order name: NT PRO-BNP; Complete Time: 19:17 pm1 05/19 17:37 Order name: PT-INR; Complete Time: 19:17 pm1 05/19 15:37 Order name: EKG; Complete Time: 15:37 05/19 17:37 Order name: Troponin (emerg Dept Use Only); Complete Time: 19:17 pm1 05/19 17:37 Order name: XRAY Chest (1 view); Complete Time: 19:17 pm1 05/19 17:37 Order name: UDS; Complete Time: 19:17 pm1 05/19 18:10 Order name: Urine Dipstick-Ancillary EDMS 05/19 18:10 Order name: Urine Dipstick-Ancillary; Complete Time: 18:14 EDMS 05/19 20:10 Order name: Troponin (emerg Dept Use Only) pm1 05/19 20:11 Order name: Troponin (Emerg Dept Use Only); Complete Time: 21:10 EDMS 05/19 15:37 Order name: EKG - Nurse/Tech; Complete Time: 15:37 05/19 17:37 Order name: Cardiac monitoring; Complete Time: 17:52 pm1 05/19 17:37 Order name: IV Saline Lock; Complete Time: 17:55 pm1 05/19 17:37 Order name: Labs collected and sent; Complete Time: 17:55 pm1 05/19 17:37 Order name: O2 Per Protocol; Complete Time: 17:52 pm1 05/19 17:37 Order name: O2 Sat Monitoring; Complete Time: 17:52 pm1 05/19 17:37 Order name: Urine Dipstick-Ancillary (obtain specimen); Complete Time: 18:06 pm1 Administered Medications: No medications were administered Disposition: 05/20 20:36 Co-signature as Attending Physician, Hudson Pinto MD. ma2 Disposition Summary: 05/19/21 21:14 Left Against Medical Advice Location: Home pm1 Problem: new pm1 Symptoms: are unchanged pm1 Condition: Stable pm1 Diagnosis - Chest pain, unspecified pm1 - Other stimulant abuse - Methamphetamine pm1 - Cannabis abuse pm1 Followup: pm1 - With: Emergency Department - When: As needed - Reason: Worsening of condition Followup: pm1 - With: Private Physician - When: Upon discharge from the Emergency Department - Reason: Recheck today's complaints, Continuance of care, Re-evaluation by your physician Discharge Instructions: - Discharge Summary Sheet pm1 - Nonspecific Chest Pain, Adult pm1 - Cannabis Use Disorder pm1 - Methamphetamines Use Disorder pm1 Signatures: Dispatcher [employer] Yoselin Marie RN RN ss Donavon Vallejo, WAITSTAFF CAPTAIN WAITSTAFF CAPTAIN pm1 Hudson Pinto, MD ma2
[2021-05-19 21:35] VITALS: TEMP 98.2
[2021-05-19 21:39] VITALS: BP 105/61; O2SAT 100
== END 2021-05-19 21:28 | disposition left against medical advice (07) ==
LOC: ER 14:50
DX: F15.10 Other stimulant abuse, uncomplicated (principal); F12.10 Cannabis abuse, uncomplicated; I10 Essential (primary) hypertension; F17.210 Nicotine dependence, cigarettes, uncomplicated; Z91.041 Radiographic dye allergy status
CPT/HCPCS: 36415; 71045; 80048; 80076; 80307; 81003; 83735; 83880; 84484; 85025; 85610; 93005; 99285

== ENCOUNTER 2021-06-26 11:24 | Emergency (ER) | payer SELFPAY ==
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
[2021-06-26 14:29] VITALS: TEMP 98.7
[2021-06-26 14:30] VITALS: BP 135/97; O2SAT 97
== END 2021-06-26 14:23 | disposition home or self-care (01) ==
LOC: ER 11:24
DX: S12.600S Unspecified displaced fracture of seventh cervical vertebra, sequela (principal); I10 Essential (primary) hypertension; F17.210 Nicotine dependence, cigarettes, uncomplicated
CPT/HCPCS: 70450; 72125; 99283

== ENCOUNTER 2023-08-24 01:38 | Emergency (ER) | payer SELFPAY ==
--- OUTSIDE RECORDS SUMMARY | 2023-08-24 01:41 | XMS REPORT | Continuity of Care Document ---
:[address] [facility] t Address [address] [place] [address] [place] [address] Care Team Providers Name Role Phone PCP, PATIENT DOES NOT HAVE A Primary Care Physician UnavailLIZZIE Mario Attending Clinician Unavailable Lizzie Rivera MD Attending Clinician ADRIANNA Attending Clinician Unavailable Doctor Unassigned, [place] Attending Clinician Unavailable Radiology Attending Clinician Unavailable RADIOLOGY Attending Clinician Unavailable NELIDA MCKEON Attending Clinician Unavailable Nelida Cunningham Attending Clinician Belén Loredo LMSW Attending Clinician Zacarias Francois MD Attending Clinician Rosendo LAFLEUR Attending Clinician Unavailable Rosendo Benton Attending Clinician ADRIANNA Admitting Clinician Unavailable NELIDA MCKEON Admitting Clinician Unavailable Payers Payer Name Policy Type Policy Number Effective Date Expiration Date Braden mcginnis [facility] [id number] 2022 HEALTHCARE 00:00:00 Problems Condition Condition Condition Status Onset Resolution Last Treating Co mments Source Name Details Category Date Date Treatment Clinician Date No known No known Disease Unive rs active active ity of problems problems [facility] Allergies, Adverse Reactions, Alerts Allergy Allergy Status Severity Reaction(s) Onset Inactive Treating Comm ents Source Name Type Date Date Clinician NO KNOWN Drug Active Univers ALLERGIE Class ity of S [facility] Social History Social Habit Start Date Stop Date Quantity Comments Source Exposure to 2022-05-20 2022-05-30 Not sure University SARS-CoV-2 (event) 00:00:00 13:36:00 [facility] Cigarettes smoked 2022-05-30 2022-05-30 Univers ity of current (pack per 00:00:00 00:00:00 [facility] ) - Reported Branch Cigarette 2022-05-30 2022-05-30 University of pack-years 00:00:00 00:00:00 [facility] Tobacco use and 2022-05-30 2022-05-30 Former smokeless Uni versity of exposure 00:00:00 00:00:00 tobacco user [facility] Alcohol intake 2022-05-30 2022-05-30 1.43 /d University of 00:00:00 00:00:00 [facility] History of tobacco 2004-06-04 Chews Tobacco Uni versity of use 00:00:00 [facility] Sex Assigned At [birth year] Universit y of 00:00:00 00:00:00 [facility] Smoking Status Start Date Stop Date Source Smokes tobacco daily 2022-05-30 00:00:00 [facility] ity [facility] Medications Ordered Filled Start Stop Current Ordering Indication Dosage Frequency Signature Comments Components Source Medication Medication Date Date Medication? Clinician (SIG) Name Name metoprolol Yes Take by [facility] ers succinate 05-30 mouth ity of 50 mg CSpX 13:52: daily. [place] 31 [facility] [place] gabapentin Yes [id number] 300mg Take 1 Univers 300 mg 03-27 capsule by ity of capsule 00:00: mouth 3 [place] 00 (three) Medical times Branch daily. Vital Signs Vital Name Observation Time Observation Value Comments Source Systolic blood 2022-05-30 18:54:00 139 mm[Hg] Univer sity of pressure [facility] Diastolic blood 2022-05-30 18:54:00 85 mm[Hg] Unive rsity of pressure [facility] Heart rate 2022-05-30 18:54:00 71 /min Universi ty [facility] Body temperature 2022-05-30 18:54:00 36 Angelique Univ ersity [facility] Respiratory rate 2022-05-30 18:54:00 18 /min [facility] Body height 2022-05-30 18:54:00 170.2 cm [facility] Body weight 2022-05-30 18:54:00 72.122 kg [facility] BMI 2022-05-30 18:54:00 24.90 kg/m2 [facility] Oxygen saturation in 2022-05-30 18:54:00 96 /min [facility] Arterial blood by [facility] Pulse oximetry Branch Procedures This patient has no known procedures. Encounters Start End Encounter Admission Attending Care Care Encounter Source Date/Time Date/Time Type Type Clinicians Facility Department ID 2023-04-01 2023-04-01 Outpatient [facility] [id number] 13:09:14 13:09:14 [id number] [place] 2022-12-02 2022-12-02 Outpatient [facility] [id number] Kimo 17:18:46 17:18:46 [id number] [place] 2022-06-05 2022-06-05 Outpatient R JAIMIE, [facility] [id number] Univers 10:20:00 10:20:00 LIZZIE pope [facility] 2022-05-30 2022-05-30 [facility] [id number] Univers 14:00:00 16:07:26 NASREENYOMAIRA demarcus pope [facility] 2022-05-30 2022-05-30 Office Jaimie, [facility] [id number] Univers 14:00:00 14:20:00 Visit Lizzie HUIZAR [id number] demarcus [facility] [id number] Kimberly SHEPPARD [id number] Tn dical [facility] 059 Branch [facility] 2022-05-30 2022-05-30 [facility] [id number] Univers 14:00:00 14:00:00 LIZZIE pope [facility] 2022-04-21 2022-04-21 Outpatient AMBREEN_FAR ULISES [facility] 866 [place] 00:00:00 00:00:00 HANA 0801 da [facility] 2022-04-18 2022-04-18 Orders Doctor ANNA [id number] Univers 00:00:00 00:00:00 Only Unassigned, NILSA [id number] ity of [place] [facility] [id number] Damion as [id number] [facility] 009 Branch 2022-04-03 2022-04-03 [facility] Radiology [facility] [id number] Univers 13:44:23 23:59:00 Encounter [place] [id number] ity of [facility] 4[place]2.7.2.[place] [id number] [facility] 807 Branch 2022-04-03 2022-04-03 [facility] Radiology [facility] [id number] Univers 13:39:40 13:43:00 Encounter [place] [id number] ity of [facility] [place]7.2.[place] [id number] [facility] 807 Branch 2022-04-03 2022-04-03 Outpatient R RADIOLOGY [facility] [id number] Univers 13:38:41 13:38:41 ity of [facility] 2022-04-03 2022-04-03 Hospital Radiology [facility] [id number] [id number] Univers 13:38:41 13:38:41 Encounter [place] [id number] ity of [facility] 4[place]2.7.2.[place] [id number] [facility] 807 Branch 2022-04-03 2022-04-03 Hospital Radiology [facility] [id number] Univers 13:30:00 13:37:00 Encounter [place] [id number] ity of [facility] [place]7.2.[place] [id number] [facility] 807 Branch 2022-03-27 2022-03-27 Emergency X [facility] [id number] Univers 11:34:00 14:05:00 NELIDA ity of [facility] 2022-03-27 2022-03-27 Emergency [facility] [id number] Univers 11:34:00 14:05:00 Nelida R GAYE 350.1.13.10 i ty of [place] 4.2.7.2.686 [facility] [id number] [address] 2022-03-11 2022-03-11 Patient ANNA Loredo [id number] Univers 00:00:00 00:00:00 Outreach Belén ASH [id number] i ty of [facility] 4.2.7.2.686 Damion as [id number] [address] 2022-03-10 2022-03-10 Telephone AlessandroRUST 1.2.840.114 [id number] Univers 00:00:00 00:00:00 Zacarias Campoverde [facility] [id number] it y of [facility] 4.2.7.2.686 Damion as WILEY?BLEA [id number] [address] MEDICAL OFFICE BUILDING 2021-11-20 2021-11-20 Emergency X Rosendo LAFLEUR [facility] ERT [id number] Univers 11:01:00 13:47:00 ity of [facility] 2021-11-20 2021-11-20 Emergency Rosendo Lafleur [facility] [id number] Univers 11:01:00 13:47:00 Meera GAYE 350.1.13.10 i ty of [place] 42.7.2.686 [facility] [id number] [address] Results Test Description Test Time Test Comments Results Result Comments Source CT/NG, NAAT, URINE 2022-04-17 07:23:03 Test Item Value Reference Range Interpretation Comme nts GONORRHEA, NAAT NEGATIVE NEGATIVE IMPORTA NT NOTICE: SEE ANNOUNCEMENT AT (test code = [email or web address]/[email or web address] Effect Note: 15900) Assay methodolo gy is nucleic acid amplification by transcriptio n mediated amplification (TMA) utilizing the A ptima Combo 2 Assay. CHLAMYDIA, NAAT NEGATIVE NEGATIVE IMPORTA NT NOTICE: SEE ANNOUNCEMENT AT (test code = [email or web address]://www.Business Engine/[email or web address] Effect Note: 04117) Assay methodolo gy is nucleic acid amplification by transcriptio n mediated amplification (TMA) utilizing the A ptima Combo 2 Assay. UNLESS OTHERWISE INDIC ATED, ALL TESTING PERFORMED [facility] [employer], [employer]. [address] [place] [address] MATERIAL YARD CLERK: VIKKI GARRISON M.D. CLIA NUMBER [id number] [place] [id number] PSA, [id number] 06:44:56 Test Item Value Reference Range Interpretation Comments PSA, TOTAL 1.46 NG/ML See_Comment NOTE: Methodol ogy is Darryl (test code = Pablo Electroch emiluminescence 2606) Immunoassay tra ceable to WHO reference stand genevieve 96/760. [Automated mess age] The system which generated this result transmitted ref erence range: <=4.00. The ref erence range was not used to int erpret this result as garrett l/abnormal. HIV 1/2 4TH GEN, RFLX [id number] 06:34:55 Test Item Value Reference Range Interpretation Comments HIV 1/2 4TH GEN, RFLX CONF (test NON-REACTIVE NON-REACTIVE code = 3514) HEPATITIS PANEL, [id number] 06:34:55 Test Item Value Reference Range Interpretation Comments HEPATITIS A IgM (test NON-REACTIVE NON-REACTIVE code = 34783) HEPATITIS B CORE IgM NON-REACTIVE NON-REACTIVE (test code = 4644) HEPATITIS B SURF AG NON-REACTIVE NON-REACTIVE (test code = 2739) HEPATITIS C ANTIBODY NON-REACTIVE NON-REACTIVE (test code = 4675) INTERPRETATION (NOTE) Hepatitis A HEPATITIS A: (test code sero logy shows no = 2552) evidence of acu te hepatitis A. INTERPRETATION (NOTE) Hepatitis B HEPATITIS B: (test code sero logy shows no = 56607) evidence of acu te hepatitis B and no indication of exposure to hepatitis B vir us in the previous anant eight months. INTERPRETATION (NOTE) Hepatitis C HEPATITIS C: (test code sero logy shows no = 44118) evidence of exposure to hepatitisC viru s at this time. I t can take up to 12 months after exposure tothe hepatitis C vir us for antibodies to become detectab le in the blood in certain patient s. COMPREHENSIVE METABOLIC [id number] 05:47:54 Test Item Value Reference Range Interpretation Comments GLUCOSE (test code = 90 MG/DL 70-99 2216) BUN (test code = 7 MG/DL 6-20 2207) CREATININE (test 0.94 MG/DL 0.80-1.40 code = 221) eGFR (2020 CKD-EPI) 99 ML/MIN/1.73 >60 (test code = 73667) CALC BUN/CREAT (test 7 RATIO 6-28 code = 223) SODIUM (test code = 138 MEQ/L 311-057 6533) POTASSIUM (test code 4.8 MEQ/L 3.5-5.4 = 2227) CHLORIDE (test code 101 MEQ/L 95-107 = 2214) CARBON DIOXIDE (test 25 MEQ/L 19-31 code = 2205) CALCIUM (test code = 9.1 MG/DL 8.5-10.5 2208) PROTEIN, TOTAL (test 6.8 G/DL 6.1-8.3 code = 2228) ALBUMIN (test code = 4.5 G/DL 3.5-5.2 2200) CALC GLOBULIN (test 2.3 G/DL 1.9-3.7 code = 2239) CALC A/G RATIO (test 2.0 RATIO 1.0-2.6 code = 2233) BILIRUBIN, TOTAL 0.3 MG/DL See_Comment [Automated message] (test code = 2206) The syste m which generated this result transmit evan reference range : <=1.2. The refe rence range was not u sed to interpret th is result as normal/abnormal . ALKALINE PHOSPHATASE 83 U/L 40-118 (test code = 2203) AST (test code = 18 U/L 9-50 2217) ALT (test code = 19 U/L 5-50 2218) LIPID [id number] 05:47:54 Test Item Value Reference Range Interpretation Comments CHOLESTEROL (test 204 MG/DL <200 H code = 2210) TRIGLYCERIDES (test 257 MG/DL <150 H code = 2232) HDL CHOLESTEROL (test 37 MG/DL >39 L code = 2220) CALC LDL CHOL (test 127 MG/DL <100 H NOTE: C ALCULATED LDL code = 2237) IS BASED ON RIVAS-SCHULTZ METHOD WHICHINCLUDES ADJUSTABLE TRIGLYCERIDE:VL DL CHOLESTEROL RAT IO.THIS FACTOR VARIES B Y MEASURED TRIGLY CERIDE AND NON-HDLCHOL ESTEROL CONCENTRATIONS WITH INCREASED CALCU LATED LDL SEENIN HIGH ER TRIGLYCERIDE OR LOWER NON-HDL SPECIME NS. FOR MOREINFORMATION , SEE CLIENT ANNOUNCE MENT AT [email or web address] RISK RATIO LDL/HDL 3.43 RATIO <3.55 (test code = 2238) [id number] 05:09:59 Test Item Value Reference Range Interpretation Comments RPR RESULT (test code = NON-REACTIVE NON-REACTIVE 3501) RPR TITER (test code = 3500) NOT INDIC. TITER NOT INDIC. CBC W/AUTO DIFF WITH [id number] 04:43:48 Test Item Value Reference Range Interpretation Comments WBC (test code = 7.9 K/UL 3.5-11.0 1001) RBC (test code = 4.44 M/UL 4.50-6.10 L 1002) HEMOGLOBIN (test code 13.7 G/DL 13.5-17.0 = 1003) HEMATOCRIT (test code 38.6 % 40.0-51.0 L = 1004) MCV (test code = 86.9 fL 80.0-99.0 1005) MCH (test code = 30.9 PG 25.0-33.0 1006) MCHC (test code = 35.5 G/DL 31.0-36.0 1007) RDW (test code = 14.4 % 11.5-15.0 1038) NEUTROPHILS (test 63.9 % code = 1008) LYMPHOCYTES (test 25.0 % code = 1010) MONOCYTES (test code 4.6 % = 1011) EOSINOPHILS (test 5.1 % code = 1012) BASOPHILS (test code 0.8 % = 1013) IMMATURE GRANULOCYTES 0.6 % (test code = 1036) NUCLEATED RBCS (test 0.0 /100 WBC'S See_Comment [Aut omated code = 1065) message] The sy stem which generated this result transmitted reference range : 0.0. The refere nce range was not u sed to interpret th is result as normal/abnormal . PLATELET COUNT (test 257 K/UL 130-400 code = 1015) ABSOLUTE NEUTROPHILS 5.05 K/UL 1.50-7.50 (test code = 1066) ABSOLUTE LYMPHOCYTES 1.97 K/UL 1.00-4.00 (test code = 1067) ABSOLUTE MONOCYTES 0.36 K/UL 0.20-1.00 (test code = 1068) ABSOLUTE EOSINOPHILS 0.40 K/UL 0.00-0.50 (test code = 1040) ABSOLUTE BASOPHILS 0.06 K/UL 0.00-0.20 (test code = 1069) ABS IMMATURE 0.05 K/UL 0.00-0.10 GRANULOCYTES (test code = 1020) ABS NUCLEATED RBCS 0.00 K/UL 0.00-0.11 (test code = 52582) HEMOGLOBIN [id number] 04:27:00 Test Item Value Reference Range Interpretation Comments HEMOGLOBIN A1c (test code = 37879) 5.4 % 4.2-5.6
[2023-08-24 02:47] LABS: Absolute Lymphocytes (CBC) 2.3 K/uL (0.7-4.9); Hematocrit 43.3 % (39.6-49.0); Lymphocytes % 27.6 % (15.3-44.8); MPV 7.3 fL (7.6-11.3); Platelets 288 thou/uL (152-406); RBC Red Blood Cell Count 4.76 M/uL (4.33-5.43)
[2023-08-24 03:01] LABS: Albumin 4.1 g/dL (3.4-5.0); Bilirubin Total 0.9 mg/dL (0.2-1.0); Potassium 3.3 mEq/L (3.5-5.1); Protein, Total 7.8 g/dL (6.4-8.2); Troponin High Sensitivity 4.3 pg/mL (<58.9)
--- NOTE | 2023-08-24 05:47 | EDPHYS ---
Physician Documentation [facility] Name: Corbin Diez Age: 53 yrs Sex: Male : 1970 Arrival Date: 08/24/2023 Time: 01:38 Bed 17 Private MD: ED Physician Isaías Giang HPI: 08/24 02:51 This 53 yrs old Male presents to ER via Ambulatory with complaints of Abdominal Pain. ms3 02:51 53-year-old male with past medical history of hypertension, anxiety, depression, colon ms3 rupture presents to the emergency department for epigastric abdominal pain that has been ongoing for 1 year. Patient states the pain has become worse over the last 2 days. Patient states pain is a 7/10. Patient states he is currently now living on the streets and under more stress. Patient denies any alleviating or inciting factors. Historical: - Allergies: 02:07 IV contrast; Ramone used in April 2021 with no problem; kl - PMHx: 02:07 HTN; Anxiety; depression; colon rupture; kl 03:23 Pancreatitis; Alcoholism; lg3 - PSHx: 02:07 hernia repair; Exploratory laparotomy; Appendectomy; shoulder; kl - Immunization history:: Adult Immunizations not immunized. - Social history:: Smoking status: Patient reports the use of cigarette tobacco products, smokes one-half pack cigarettes per day. ROS: 02:51 Constitutional: Negative for fever, and chills. Neck: Negative for injury, pain, and ms3 swelling, Cardiovascular: Negative for chest pain, and palpitations. Respiratory: Negative for shortness of breath, cough, wheezing, and pleuritic chest pain, 02:51 MS/Extremity: Negative for injury and deformity, Skin: Negative for injury, rash, and discoloration, 02:51 Abdomen/GI: Positive for abdominal pain, 02:51 All other systems are negative, Exam: 02:51 Constitutional: This is a well developed, well nourished patient who is awake, alert, ms3 and in no acute distress. Head/Face: Normocephalic, atraumatic. Chest/axilla: Normal chest wall appearance and motion. Nontender with no deformity. Cardiovascular: Regular rate and rhythm with a normal S1 and S2. No gallops, murmurs, or rubs. Normal PMI, no JVD. No pulse deficits. Respiratory: Lungs have equal breath sounds bilaterally, clear to auscultation and percussion. No rales, rhonchi or wheezes noted. No increased work of breathing, no retractions or nasal flaring. Abdomen/GI: Soft, non-tender, with normal bowel sounds. No distension or tympany. No guarding or rebound. No evidence of tenderness throughout. Skin: Warm, dry with normal turgor. Normal color with no rashes, no lesions, and no evidence of cellulitis. MS/ Extremity: Pulses equal, no cyanosis. Neurovascular intact. Full, normal range of motion. 03:24 ECG was reviewed by the Attending Physician. ms3 Vital Signs: 02:04 BP 145 / 102; Pulse 79; Resp 18; Temp 97.2(TE); Pulse Ox 100% ; Height 5 ft. 7 in. ; kl Pain 7/10; 02:35 BP 142 / 87; Pulse 77; Resp 16; Pulse Ox 100% ; nw1 06:07 BP 127 / 70; Pulse 75; Resp 18; Temp 98.2; Pulse Ox 96% ; la4 02:04 Pain Scale: Adult kl [place] Coma Score: 02:35 Eye Response: spontaneous(4). Motor Response: obeys commands(6). Verbal Response: nw1 oriented(5). Total: 15. MDM: 02:09 Patient medically screened. ms3 02:51 Differential diagnosis: myocardia ischemia or infarction, non-specific abd pain, ms3 pancreatitis. 05:46 Data reviewed: vital signs, nurses notes, lab test result(s), radiologic studies, and ms3 as a result, I will discharge patient. Counseling: I had a detailed discussion with the patient and/or guardian regarding the historical points, exam findings, and any diagnostic results supporting the discharge/admit diagnosis, lab results, radiology results, the need for outpatient follow up, to return to the emergency department if symptoms worsen or persist or if there are any questions or concerns that arise at home. Special discussion: Based on the patient's Hx, exam, and Dx evaluation, there is no indication for emergent surgery or inpatient Tx. It is understood by the patient/guardian that if the Sx's persist or worsen they need to return immediately for re-evaluation. ED course: Discussed elevated lipase with patient Discussed pancreatitis diet with patient. Patient to follow-up with primary care physician in 2 to 3 days. All questions were answered. Return precautions discussed include worsening symptoms, or any other concerns. On reevaluation patient symptoms improved, patient is abdomen benign, patient tolerating p.o. 08/24 02:10 Order name: CBC with Diff; Complete Time: 02:50 ms3 08/24 02:10 Order name: CMP; Complete Time: 03:02 ms3 08/24 02:10 Order name: Lipase; Complete Time: 03:02 ms3 08/24 02:10 Order name: Troponin High Sensitivity; Complete Time: 03:02 ms3 08/24 03:03 Order name: CT Abd/Pelvis - Without Contrast ms3 08/24 02:10 Order name: EKG; Complete Time: 02:11 ms3 08/24 02:10 Order name: IV Saline Lock; Complete Time: 02:32 ms3 08/24 02:10 Order name: Labs collected and sent; Complete Time: 02:32 ms3 08/24 02:10 Order name: EKG - Nurse/Tech; Complete Time: 02:46 ms3 EC:24 Rate is 74 beats/min. Rhythm is regular. QRS Lejunior is Normal. DE interval is normal. QRS ms3 interval is normal. Clinical impression: Normal ECG. Interpreted by me. Reviewed by me. Administered Medications: No medications were administered Disposition Summary: 08/24/23 05:46 Discharge Ordered Notes: Location: Home ms3 Condition: Stable ms3 Diagnosis - Alcohol induced acute pancreatitis without necrosis or infection ms3 - Upper abdominal pain, unspecified ms3 Followup: ms3 - With: Paul Mendoza DO - When: 2 - 3 days - Reason: Recheck today's complaints Discharge Instructions: - Discharge Summary Sheet ms3 - Acute Pancreatitis ms3 - Pancreatitis Eating Plan ms3 Forms: - Medication Reconciliation Form ms3 - Thank You Letter ms3 - Antibiotic Education ms3 - Prescription Opioid Use ms3 - Patient Portal Instructions ms3 - Leadership Thank You Letter ms3 Prescriptions: - Pepcid 20 mg Oral Tablet - take 1 tablet ORAL route every 12 hours for 5 days; 10 tablet; Refills: 0, ms3 Product Selection Permitted Signatures: Dispatcher [employer] Mahsa Carbone RN Laura Adorno RN RN 3 Giang, Isaías, DO DO ms3
--- NOTE | 2023-08-24 05:47 | ER ---
Nurse's Notes [facility] Name: Corbin Diez Age: 53 yrs Sex: Male : 1970 Arrival Date: 08/24/2023 Time: 01:38 Bed 17 Private MD: Diagnosis: Alcohol induced acute pancreatitis without necrosis or infection;Upper abdominal pain, unspecified Presentation: 08/24 02:04 Chief complaint: Patient states: epigastric pain today reports has not been taking prescribed medications due to finances has been on streets x 2 days. Coronavirus screen: Vaccine status: Patient reports receiving the 2nd dose of the covid vaccine. Ebola Screen: Patient negative for fever greater than or equal to 101.5 degrees Fahrenheit, and additional compatible Ebola Virus Disease symptoms. Initial Sepsis Screen: Does the patient meet any 2 criteria? No. Patient's initial sepsis screen is negative. Does the patient have a suspected source of infection? No. Patient's initial sepsis screen is negative. Risk Assessment: Do you want to hurt yourself or someone else? Patient reports no desire to harm self or others. 02:04 Method Of Arrival: Ambulatory 02:04 Acuity: KARLO 3 kl Triage Assessment: 02:08 General: Appears in no apparent distress. unkempt, Behavior is calm, cooperative. Pain: Complains of pain in xiphoid area Pain currently is 7 out of 10 on a pain scale. EENT: Reports pain in right eye. GI: Reports epigastric pain. Historical: - Allergies: 02:07 IV contrast; Ramone used in April 2021 with no problem; kl - PMHx: 02:07 HTN; Anxiety; depression; colon rupture; kl 03:23 Pancreatitis; Alcoholism; lg3 - PSHx: 02:07 hernia repair; Exploratory laparotomy; Appendectomy; shoulder; kl - Immunization history:: Adult Immunizations not immunized. - Social history:: Smoking status: Patient reports the use of cigarette tobacco products, smokes one-half pack cigarettes per day. Screenin:35 [facility] ED Fall Risk Assessment (Adult) History of falling in the last 3 months, nw1 including since admission No falls in past 3 months (0 pts). [facility] ED Fall Risk Assessment (Adult) Confusion or Disorientation No (0 pts) Intoxicated or Sedated No (0 pts) Impaired Gait No (0 pts) Mobility Assist Device Used No (0 pt) Altered Elimination No (0 pt) Score/Fall Risk Level 0 - 2 = Low Risk. Abuse screen: Denies threats or abuse. Denies injuries from another. Nutritional screening: No deficits noted. Tuberculosis screening: No symptoms or risk factors identified. Assessment: 02:35 Reassessment: PT REPORTS HAVING MIDSTERNAL CP X1 YR INCREASINGLY GETTING WORSE THE PAST nw1 3 DAYS. PT REPORTS ETOH USE AND STATES HE BELIEVES THIS PAIN TO BE PANCREATITIS. PT NOTED A\T\O X4. General: Appears in no apparent distress. comfortable, slender, unkempt. Neuro: Level of Consciousness is awake, alert, obeys commands, Oriented to person, place, time, situation. Cardiovascular: No deficits noted. Denies chest pain. Respiratory: No deficits noted. Airway is patent Trachea midline Respiratory effort is even, unlabored, Respiratory pattern is regular, symmetrical. GI: Bowel sounds present X 4 quads. Abd is soft and non tender X 4 quads. Derm: No signs and/or symptoms reported regarding the dermatologic system. 03:15 Reassessment: PT TO CT VIA STRETCHER AND CONVEYOR LOADER. nw1 Vital Signs: 02:04 BP 145 / 102; Pulse 79; Resp 18; Temp 97.2(TE); Pulse Ox 100% ; Height 5 ft. 7 in. ; kl Pain 7/10; 02:35 BP 142 / 87; Pulse 77; Resp 16; Pulse Ox 100% ; nw1 06:07 BP 127 / 70; Pulse 75; Resp 18; Temp 98.2; Pulse Ox 96% ; la4 02:04 Pain Scale: Adult kl [place] Coma Score: 02:35 Eye Response: spontaneous(4). Motor Response: obeys commands(6). Verbal Response: nw1 oriented(5). Total: 15. ED Course: 01:48 Patient arrived in ED. ag3 01:49 Isaías Giang DO is Attending Physician. ms3 02:07 Triage completed. kl 02:27 Martinez Guido, RN is Primary Nurse. la4 02:32 CBC with Diff Sent. nw1 02:32 CMP Sent. nw1 02:32 Lipase Sent. nw1 02:32 No provider procedures requiring assistance completed. Inserted saline lock: 18 gauge nw1 in right forearm, using aseptic technique. Blood collected. 02:35 Patient has correct armband on for positive identification. Placed in gown. Bed in low nw1 position. Call light in reach. Side rails up X2. Provided Education on: POC. Door closed. Warm blanket given. 03:26 CT Abd/Pelvis - Without Contrast In Process Unspecified. EDMS 05:45 Paul Mendoza DO is Referral Physician. ms3 Administered Medications: No medications were administered Medication: 02:35 VIS not applicable for this client. nw1 Outcome: 05:46 Discharge ordered by . ms3 06:11 Patient left the ED. la4 Signatures: Dispatcher [employer] EDMS Mahsa Montero, RN RN Rosa Hollis Laura Holder, RN RN 3 Isaías Giang DO DO ms3 Martinez Guido RN RN la4 Lise Martinez, LEV RN nw1
[2023-08-24 06:49] VITALS: BP 127/70; TEMP 98.2; O2SAT 96
--- NOTE | 2023-08-24 13:44 | RAD REPORT ---
EXAM DESCRIPTION: CT - Abdomen Pelvis Wo Contrast - 08/24/2023 7:34 am CLINICAL HISTORY: ABD PAIN COMPARISON: None. 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 FINDINGS: Lower lungs are clear. Abdomen: The liver is normal in appearance. There is no biliary dilatation. Gallbladder is normal in appearance. The pancreas and spleen are normal in appearance. The adrenal glands and kidneys are unre markable. Abdominal aorta is normal in course and caliber without aneurysm. There is no free air. There is no r etroperitoneal adenopathy. Pelvis: There is no bowel obstruction. Urinary bladder is unremarkable. There is no free fluid. Appen katarzyna is not clearly seen. Skeleton: There are no acute osseous findings. No suspicious bony lesions. IMPRESSION: No definite acute process. Electronically signed by: Ga Pathak MD 08/24/2023 04:58 AM [employer] H[employer] Due to temporary technical issues with the PACS/Fluency reporting system, reports are being signed by the in house radiologist without review as a courtesy to ensure prompt reporting. The interpreting r adiologist is fully responsible for the content of the report.
--- NOTE | 2023-08-25 13:32 | EKG ---
Test Date: 2023-08-24 Test Time: 02:44:55 Boat Garnisher: JOANNE MEASUREMENT RESULTS: Intervals: Rate: 74 IA: 170 QRSD: 90 QT: 392 QTc: 435 [place]: P: 63 IA: 170 QRS: 64 T: 66 INTERPRETIVE STATEMENTS: Normal sinus rhythm Normal ECG Compared to ECG 05/19/2021 15:24:55 Sinus bradycardia no longer present Electronically Signed On 08-25-23 13:27:32 BOTTLE INSPECTOR by Brian Cifuentes
== END 2023-08-24 06:11 | disposition home or self-care (01) ==
LOC: ER 01:38
DX: K85.20 Alcohol induced acute pancreatitis without necrosis or infection (principal); I10 Essential (primary) hypertension; F10.20 Alcohol dependence, uncomplicated; Z21 Asymptomatic human immunodeficiency virus [HIV] infection status
CPT/HCPCS: 36415; 74176; 80053; 83690; 84484; 85025; 93005; 99283